=== PATIENT | female | born 1940 | race Caucasian/White ===

== ENCOUNTER → 2017-06-28 | Outpatient (CLI) | payer OTHER ==
[~2017-06-28] MED LIST: CIPRO500 MG PO; FLAGYL500 MG PO; LISINOPRIL-HCT1 EAC2 PO; MERIBIN5 MG PO; VITAMIN D2000 UNI1 PO
== END ==
LOC: CAT 08:11
DX: K57.32 Diverticulitis of large intestine without perforation or abscess without bleeding (principal)

== ENCOUNTER 2021-03-28 23:06 | Emergency (ER) | payer OTHER ==
[~2021-03-28] VITALS: Ht 162.6 cm; Wt 72.1 kg
[2021-03-29 00:09] VITALS: BP 165/74
== END 2021-03-29 00:08 | disposition home or self-care (01) ==
LOC: ER 23:06
DX: S81.011A Laceration without foreign body, right knee, initial encounter (principal); I10 Essential (primary) hypertension; Z90.12 Acquired absence of left breast and nipple; Z98.890 Other specified postprocedural states; Z79.899 Other long term (current) drug therapy; Z88.6 Allergy status to analgesic agent; W26.8XXA Contact with other sharp object(s), not elsewhere classified, initial encounter; Y93.89 Activity, other specified; Y92.89 Other specified places as the place of occurrence of the external cause; Y99.8 Other external cause status